=== PATIENT | female | born 1970 | race Caucasian/White ===

== ENCOUNTER → 2024-04-24 06:22 | Outpatient (REF) | payer OTHER, SELFPAY | LOC: RAD 06:22 | PROVIDERS: ATTENDING PHYSICIAN Family Medicine | DX: H53.8 Other visual disturbances (principal) | CPT/HCPCS: 93880 ==

== ENCOUNTER → 2024-04-26 10:20 | Outpatient (REF) | payer OTHER, SELFPAY | LOC: RAD 10:20 | PROVIDERS: ATTENDING PHYSICIAN Physician Assistant; FAMILY PHYSICIAN Family Medicine | DX: E04.9 Nontoxic goiter, unspecified (principal) | CPT/HCPCS: 76536 ==

== ENCOUNTER → 2024-05-11 06:34 | Outpatient (REF) | payer OTHER, SELFPAY | LOC: MRI 06:34 | PROVIDERS: ATTENDING PHYSICIAN Family Medicine; PRIMARYCARE PHYSICIAN Family Medicine | DX: H53.8 Other visual disturbances (principal) | CPT/HCPCS: 70551 ==